=== PATIENT | male | born 1995 | race Caucasian/White ===

== ENCOUNTER 2021-01-25 13:46 | Outpatient (REF) | payer OTHER, SELFPAY ==
--- NOTE | 2021-01-25 15:43 | MHC.AU.HFU ---
Hearing Instrument Follow-Up- Binaural Date of Visit: 01/25/21 Right Ear: Case Manager: Phonak Model: Overtoneeo V90-13 Serial Number: [id number] Battery Size: 13 Expeditionary Fighting Vehicle Crewman: Size 2 SP Type of Mold: CShell Type of Wax Guard: Cerustop Dispensed By: [employer] [place], [place] Date of Fitting: ~2013 Left Ear: Case Manager: Phonak Model: Audeo V90-13 Serial Number: [id number] Battery Size: 13 Expeditionary Fighting Vehicle Crewman: Size 2 SP Type of Mold: CShell Type of Wax Guard: Cerustop Dispensed By: [employer] [place] Date of Fitting: ~2013 Follow-Up Summary: Patient seen to transfer his care to us. 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 He uses hearing aids binaurally. The cShell medical affairs specialist wire broke on his right aid and there is a hole in the left cShell. Removed a small amount of cerumen from the left ear with EarWax MD and a lighted curette. Took earmold impressions without incident. Ordering new cShells for both aids and will bill to insurance. Put a size 3xS right medical affairs specialist and large power dome on the right aid for him to use for now. Performed maintenance on both aids. Also advised patient that he is due for new hearing aids and if he wants to pursue new aids he can return for an audio and HAE. Saved hearing aid programming in [facility] today. Recommendations: Recommendations: Patient will be contacted when materials have arrived. Signature: Provider: Radha Hernandez, [facility]
== END 2021-01-25 13:47 | disposition home or self-care (01) ==
LOC: HO.HAP 13:46
PROVIDERS: Visit Provider Nurse Practitioner Family
DX: Z46.1 Encounter for fitting and adjustment of hearing aid (principal); H90.3 Sensorineural hearing loss, bilateral
CPT/HCPCS: V5011; V5275

== ENCOUNTER 2021-02-16 12:22 | Outpatient (REF) | payer OTHER, SELFPAY | END 2021-02-16 12:23 | disposition home or self-care (01) | LOC: HO.HAP 12:22 | PROVIDERS: Visit Provider Family Medicine | DX: Z46.1 Encounter for fitting and adjustment of hearing aid (principal); H90.3 Sensorineural hearing loss, bilateral | CPT/HCPCS: V5264; V5299 ==

== ENCOUNTER 2022-06-28 08:01 | Outpatient (REF) | payer OTHER, SELFPAY ==
--- NOTE | 2022-06-28 16:44 | MHC.AU.MED ---
Medical Clearance for Hearing Instrumentation Date: 06/28/22 Patient Name: Juancarlos Alarcon Date of : 1995 Primary Care Provider: Referring Provider: Zelalem Michael MD We have seen your patient on 06/28/22 and have determined that they are a candidate for amplification (See accompanying report). Specifically, they would benefit from: Hearing aid use in both ears There is a statute that addresses Medical Evaluation Requirements prior to fitting a patient with a hearing aid. According to [place] statute 265 CMR:6.03(1), (a) General. Except as provided in 265 CMR 6.03(1)(b), a workers' compensation hearings officer shall not sell a hearing aid unless the prospective user has presented to the workers' compensation hearings officer a written statement signed by a licensed physician that states that the patient's hearing loss has been medically evaluated and the patient may be considered a candidate for a hearing aid. The medical evaluation must have taken place within the preceding six months. Please note: Due to the [place] Statute referenced above, we cannot accept a signature other than that of a licensed physician. POWERHOUSE TENDER and PA signatures cannot be accepted. I am in agreement with the above recommendation. There is no medical contraindication for hearing instrumentation. Physician Signature Date Physician Name (Printed)
--- NOTE | 2022-07-01 07:23 | MHC.AU.HA1 ---
Hearing Aid Evaluation Date of Visit: 06/28/22 Historical Information: Description of Hearing: Asymmetric moderate to profound mixed hearing loss with the left ear being poorer than the right with good speech discrimination ability bilaterally related to history of cholesteotomas. Current personal amplification information, if applicable: Phonak Audeo V 90-13 binaural aids with SP receivers Summary: Juancarlos's current hearing aids have a significant amount of corrosion and debris related to his work environment and daily activities which have caused the right aid to stop working and cannot be repaired. Rechargeable hearing aids are necessary to reduce the amount of moisture accumulating in the hearing aid electronics. A Charge and Care Shoe Shiner and moisture protection such as Ear Gear are necessary to help maintain the function of the hearing aids. Will be using scans on file for the c-shells obtained last year with the addition of canal locks as they fit well and patient's history of ear surgery and large ear canals/marin has made taking good impressions difficult. Hearing Aid Prescription: Based on the individual?s shared listening needs, communication environments, dexterity, desire for connectivity, and personal preferences, the following prescription for amplification has been made: Right ear: Make, Model, Color: Phonak Audeo P 70-R Sand Beige Battery Size: Rechargeable Field Specialist/Slim Tube: Size 2 UP Type of Earmold/Dome/CShell/SlimTip: Canal Lock C Shell - Left ear:Left ear prescription to be same as Right Hearing Aid above: Make, Model, Color: Phonak Audeo P 70-R Sand Beige Battery Size: Rechargeable Field Specialist/Slim Tube: Size 2 UP Type of Earmold/Dome/CShell/SlimTip: Canal Lock C Shell Accessories/Assistive Technology Recommended: Charge and Care Shoe Shiner and Ear Gear Plan of Care: Patient wishes to purchase hearing aids as prescribed Action Taken/Action Needed: Medical Clearance to be requested from PCP/ENT Hearing Instrument Fitting to be scheduled when materials arrive Primary Diagnosis: H90.6 Mixed Hearing Loss, Bilateral Secondary Diagnosis: H69.93 Unspecified Eustachian Tube Dysfunction, Bilateral Signature:Provider: Giorgi Seals, [facility]
== END 2022-06-28 08:02 | disposition home or self-care (01) ==
LOC: HO.SH 08:01
PROVIDERS: Visit Provider Family Medicine
DX: Z01.118 Encounter for examination of ears and hearing with other abnormal findings (principal); Z46.1 Encounter for fitting and adjustment of hearing aid; H90.6 Mixed conductive and sensorineural hearing loss, bilateral; H69.93 Unspecified Eustachian tube disorder, bilateral
CPT/HCPCS: 92557; 92567; 92591; 92593

== ENCOUNTER 2022-07-25 10:26 | Outpatient (REF) | payer OTHER, SELFPAY | END 2022-07-25 10:27 | disposition home or self-care (01) | LOC: HO.HAP 10:26 | PROVIDERS: Visit Provider Family Medicine | DX: Z46.1 Encounter for fitting and adjustment of hearing aid (principal); H90.6 Mixed conductive and sensorineural hearing loss, bilateral; H69.93 Unspecified Eustachian tube disorder, bilateral | CPT/HCPCS: V5264; V5275 ==

== ENCOUNTER 2022-08-16 08:54 | Outpatient (REF) | payer OTHER, SELFPAY | END 2022-08-16 08:55 | disposition home or self-care (01) | LOC: HO.HAP 08:54 | PROVIDERS: Visit Provider Family Medicine | DX: Z46.1 Encounter for fitting and adjustment of hearing aid (principal); H90.6 Mixed conductive and sensorineural hearing loss, bilateral | CPT/HCPCS: V5011; V5020; V5160; V5261; V5264; V5267 ==

== ENCOUNTER 2022-08-16 10:16 | Outpatient (REF) | payer SELFPAY | END 2022-08-16 10:17 | disposition home or self-care (01) | LOC: HO.HAP 10:16 | PROVIDERS: Visit Provider Family Medicine | DX: Z46.1 Encounter for fitting and adjustment of hearing aid (principal); H90.6 Mixed conductive and sensorineural hearing loss, bilateral | CPT/HCPCS: V5267 ==

== ENCOUNTER 2022-08-30 09:35 | Outpatient (REF) | payer SELFPAY ==
--- NOTE | 2022-09-01 07:59 | MHC.AU.HFU ---
Hearing Instrument Follow-Up- Binaural Date of Visit: 08/30/22 Right Ear: [employer] Driver: Phonak Audeo P 70-R Sand Beige SN [id number] Repair Warranty: 11/05/2027 Loss and Damage Warranty: 11/05/2027 Service Plan: 08/16/2023 Battery Size: Rechargeable Escapement Maker: Size 2 UP Type of Mold: Canal C Shell SN [id number] warranty 11/05/2022 Type of Wax Guard: Cerustop Dispensed By: [facility] Date of Fittin08/16/2022 Left Ear: [employer]illar Driver: Phonak Audeo P 70-R Sand Beige SN [id number] Repair Warranty: 11/05/2027 Loss and Damage Warranty: 11/05/2027 Service Plan: 08/16/2023 Battery Size: Rechargeable Escapement Maker: Size 2 UP Type of Mold: Canal C Shell SN [id number] adri 11/05/22 Type of Wax Guard: Cerustop Dispensed By: [facility] Date of Fittin08/16/2022 Follow-Up Summary: Patient overall reports the hearing aids sound good and likes the bluetooth. However, the earmolds move out of the ears when chewing and sometimes when talking. When he pushes them in the ears to be more secure and he is listening to his music via bluetooth, the music shuts off. Amelia will also randomly talk 5-6 times a day. When weight lifting, which is a daily activity, and he places the weight on the stand behind his head which also causes vibration, the aids will shut down for a moment. Contacted [facility] who advised shutting off Tap Control Enabled and Voise Tape Control Skin Or Spar Mill Operator. Took open mouth impressions of both ears without complication for remake. WILL NEED TO SEND ORIGINAL C-SHELLS BACK WHEN REMAKES FIT. Recommendations:Recommendations: Patient will be contacted when materials have arrived. Diagnosis Code(s):Primary Diagnosis: H90.6 Mixed Hearing Loss, BilateralSecondary Diagnosis: H69.93 Unspecified Eustachian Tube Dysfunction, Bilateral Signature:Provider: Giorgi Seals, [facility]
== END 2022-08-30 09:36 | disposition home or self-care (01) ==
LOC: HO.HAP 09:35
DX: Z13.89 Encounter for screening for other disorder (principal)

== ENCOUNTER 2022-09-20 09:12 | Outpatient (REF) | payer OTHER, SELFPAY ==
--- NOTE | 2022-09-20 09:49 | MHC.AU.HFU ---
Hearing Instrument Follow-Up- Binaural Date of Visit: 09/20/22 Right Ear: Report Manager: Phonak Audeo P 70-R Sand Beige SN [id number] Repair Warranty: 11/05/2027 Loss and Damage Warranty: 11/05/2027 Service Plan: 08/16/2023 Battery Size: Rechargeable Nursing Service Administrator: Size 2 UP 4.0 Type of Mold: Canal C [place] SN [id number] warranty 11/05/2022 Type of Wax Guard: Cerustop Dispensed By: [facility] Date of Fittin08/16/2022 Left Ear: Report Manager: Phonak Audeo P 70-R Sand Beige SN [id number] Repair Warranty: 11/05/2027 Loss and Damage Warranty: 11/05/2027 Service Plan: 08/16/2023 Battery Size: Rechargeable Nursing Service Administrator: Size 2 UP 4.0 Type of Mold: Canal C Shell SN [id number] adri 11/05/22 Type of Wax Guard: Cerustop Dispensed By: [facility] Date of Fittin08/16/2022 Follow-Up Summary: Fit the binaural c-shell remakes with patient reporting improved fit while in office. Patient reported he continues to have bluetooth disconnect when he or glasses touch the aids as well as when weight lifting. Went to Device Options, then Manual Controls and unchecked all the tap control options. Patient has been answering call by swiping the phone. Patient will schedule appointment before 11/05/22 if any trouble with the c-shells. Diagnosis Code(s):Primary Diagnosis: H90.6 Mixed Hearing Loss, Bilateral Signature:Provider: Giorgi Seals, [facility]
== END 2022-09-20 09:13 | disposition home or self-care (01) ==
LOC: HO.HAP 09:12
PROVIDERS: Visit Provider Family Medicine
DX: Z13.89 Encounter for screening for other disorder (principal)

== ENCOUNTER 2023-05-19 11:01 | Outpatient (REF) | payer OTHER, SELFPAY ==
--- NOTE | 2023-05-19 13:01 | MHC.AU.HA3 ---
Hearing Instrument Follow-Up- Binaural Date of Visit: 05/19/23 Right Ear: Make, Model, Color, Serial Number: Phonak Beatrizeo P 70-R SN: [id number] Color: Sand Beige Drug Abuse Program Coordinator Repair Warranty: 11/05/2027 Drug Abuse Program Coordinator Loss and Damage Warranty: 11/05/2027 [facility] Service Plan: 08/16/2023 Battery Size: Rechargeable Fagot Heater Helper/Slim Tube: Size 2 UP 4.0 Earmold/Dome/CShell/SlimTip:Canal C Shell SN: [id number] warranty 11/05/2022 Type of Wax Guard: Cerustop Dispensed By: [facility] Date of Fittin08/16/2022 Left Ear: Make, Model, Color, Serial Number: Phonak Beatrizeo P 70-R SN: [id number] Color: Sand Beige Drug Abuse Program Coordinator Repair Warranty: 11/05/2027 Drug Abuse Program Coordinator Loss and Damage Warranty: 11/05/2027 [facility] Service Plan: 08/16/2023 Battery Size: Rechargeable Fagot Heater Helper/Slim Tube: Size 2 UP 4.0 Earmold/Dome/CShell/SlimTip: Canal C Shell SN: [id number] adri 11/05/22 Type of Wax Guard: Cerustop Dispensed By: [facility] Date of Fittin08/16/2022 Follow-Up Summary: Juancarlos reported his left hearing aid is not working. Cleaned both hearing aids and c-shells. Left hearing aid is weak, robotic, and static-y. Placed a new secondary art teacher on the hearing aid with significant improvement in sound quality. Left secondary art teacher wire needs to be replaced. Right hearing aid working well. Juancarlos reported it may be related to moisture as he often sweats while working out with his hearing aids. Decided to send both the left hearing aid and c-shell to [facility] for in-warranty repair to replace the secondary art teacher wire and also assess electronics of hearing aid for moisture. Juancarlos has his right hearing aid/c-shell. Programmed left loaner at Juancarlos's request - Phonak Audeo P70-R with 2P secondary art teacher and large power dome. Recommendations: Patient will be contacted when materials have arrived. Diagnosis Code(s): Primary Diagnosis: H90.6 Mixed Hearing Loss, Bilateral Signature: Provider: Giorgi Ortiz, [facility]
== END 2023-05-19 11:02 | disposition home or self-care (01) ==
LOC: HO.HAP 11:01
DX: Z13.89 Encounter for screening for other disorder (principal)

== ENCOUNTER 2023-05-30 14:02 | Outpatient (REF) | payer OTHER, SELFPAY | END 2023-05-30 14:03 | disposition home or self-care (01) | LOC: HO.HAP 14:02 | PROVIDERS: Visit Provider Internal Medicine | DX: Z13.89 Encounter for screening for other disorder (principal) ==

== ENCOUNTER 2024-08-04 20:02 | Emergency (ER) | payer OTHER, SELFPAY ==
[2024-08-04 20:21] VITALS: BP 165/88; PULSE 59; RESP 18; TEMP 36.8; O2SAT 98; BMI 29.0
--- NOTE | 2024-08-04 20:21 | ED.GENADULT ---
HPI - General Adult General Chief complaint: Skin/Abscess/Foreign Body Stated complaint: STI check Time Seen by Provider: 08/05/24 00:02 Source: patient, RN notes reviewed and old records reviewed Mode of arrival: ambulatory Limitations: no limitations History of Present Illness ED Provider: Capo FLORES narrative: 29-year-old male presents for evaluation of bumps so he noticed in his groin. He recently shaved his pubic region. He states that he noticed bumps today. They are slightly itchy pain He has not noticed any drainage from the area. No ulcerations. He does not have any discharge from the penis pain No testicular pain or swelling. He has not had any sexual encounter for the last 4 months Related Data Allergies Allergy/AdvReac Type Severity Reaction Status Date / Time sulfamethoxazole Allergy Unknown Verified 08/04/24 20:22 [From Bactrim] trimethoprim [From Bactrim] Allergy Unknown Verified 08/04/24 20:22 Review of Systems Constitutional: Constitutional: Denies body ache(s), Denies chills and Denies fever(s) Gastrointestinal: Gastrointestinal: Denies abdominal pain Genitourinary: Genitourinary: Denies penile discharge, Denies scrotal swelling, Denies testicular mass and Denies urinary hesitancy Musculoskeletal: Musculoskeletal: Denies back pain PMFSH Social History Social History Alcohol intake: never Physical Exam ED Vital Signs: Vital Signs - 24 hr 08/04/24 20:21 Temperature 98.3 F Pulse Rate 59 Respiratory Rate 18 Blood Pressure 165/88 H Pulse Oximetry 98 Oxygen Delivery Method Room Air BMI result Body Mass Index 29.0 Const General: healthy appearing, comfortable, no acute distress, alert and awake Nutritional Appearance: well nourished Orientation/consciousness: patient oriented x3 HENMT Head: Yes normocephalic and Yes atraumatic Eyes Eyelids: Yes eyelids normal Conjunctivae: conjunctivae normal Sclerae: sclerae normal Corneas: corneas normal Pupils: Equal, round and reactive pupils present EOM: EOMs intact bilaterally Neck Neck: Yes full ROM Resp Effort & Inspection: normal respiratory effort, able to speak in complete sentences and not labored GI Inspection: No distended Palpation (GI): Soft to palpation, not firm, nontender, no guarding and not rigid Other: Unremarkable circumcised male phallus. There was no testicular swelling. The patient has several scattered papules in the pelvic region 1 2 the base of the penis. No surrounding erythema, no vesicles no drainage from either area Skin General skin exam: elasticity normal Neuro General: patient oriented x3 Cranial nerves: Yes Equal, round and reactive pupils present and Yes Bilaterally intact EOM present Cognition (Neuro): normal cognition Extrem Other: Moving all extremities well without any obvious deformities Course Course Course Narrative: RME performed by Haily Jacinto PA-C. Patient is a 29 year old assigned male at presenting to the emergency department with a possible STI. Patient states that he shaves his pubic area and has noticed some red bumps. Patient states that he has not had sex since March of 2024 but he is concerned it is an STI. Patient denies any recent swimming pool or hot tub exposure. Patient states that he does not change his razor head before every shave use. Detailed physical exam and review of systems are deferred to the store gift wrap associate. Patient placed back in the waiting room pending room availability. Medical Decision Making Medical Decision Making MDM Narrative: 29-year-old male presents for evaluation of bumps in his groin. There are no vesicles to suggest herpes. The patient has not had any recent sexual encounters. This does not appear consistent with any sexually transmitted infection. We will send off a dirty urine for gonorrhea and chlamydia testing as the patient is concerned. His symptoms are most likely related to pseudofolliculitis Differential Diagnosis Differential Diagnoses: The differential diagnosis associated with the presentation includes Pseudo folliculitis Folliculitis Herpes Genital warts Discharge Plan Discharge Clinical Impression: Pseudofolliculitis Patient Disposition: Home, Self-Care Instructions: Folliculitis (ED) Additional Instructions: We will call you if your urine results positive for any sexually transmitted infections. Your symptoms are not consistent with any common sexually transmitted infections. You may use warm compresses to help with your symptoms. Follow-up with your primary doctor, return for new or worsening symptoms Print Language: Guyanese
--- OUTSIDE RECORDS SUMMARY | 2024-08-05 00:07 | XMS_ITS | Data Portability ---
Author Organization [place] [facility], Allergy Address [address] [place] [address] Care Team Providers Care Airline Customer Service Agent Name Role Phone MILKA JACKSON Primary Care Provider Assessment No assessment recorded. Plan of Treatment Reminders Order Date Submit Date Provider Last Modified By Organization Details Last Modified Time Details Appointments FOLLOW UP 30 2024 08:00A M HECTOR Hernandez MD Not available Not available Not available Lab None recorded . Referral None recorded . Procedures None recorded . Surgeries None recorded . Imaging None recorded . Medication Orders None recorded . Patient TargetsNo targets recorded. Patient InstructionsNo instructions recorded. Reason for Referral None Reported. Results Created Date Observation Date Name Description Value Unit Range Abnormal Flag Note LastModifiedBy Organization Detail LastModifiedTime 02/28/20 24 09/09/2020 imagi ng/angie henderson tic resul t No observ ation record ed. [email or web address] Not Available 23:38:13 Result Notes None recorded. 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 following mastoidec reynaldo, bilateral ears; Note: Date Diagnosed : 03/16/2021 3:23 PM (H95.193) Not Available [facility] 4 02:26:56 Impacted cerumen of bilateral ears 97082188031 30606 Active 2020 Impacted cerumen, bilateral ; Note: Date Diagnosed : 09/09/2020 9:20 AM (H61.23) Not Available [facility] 4 02:27:13 Chronic nonsuppur ative otitis media of bilateral ears 88071318409 08969 Active 2020 Other chronic nonsuppur ative otitis media, bilateral ; Note: Date Diagnosed : 09/09/2020 9:19 AM (H65.493) Not Available [facility] 4 02:27:05 Conductiv e hearing loss, bilateral 231117304 Active 2020 Conductiv e hearing loss, bilateral ; Note: Date Diagnosed : 09/09/2020 9:47 AM (H90.0) Not Available [facility] 4 02:27:01 Chronic otitis media of bilateral ears 31294741938 01196 Active 2023 HECTOR CAMPOVERDE MD [address] [facility],[place] [address], [place], [address] , [place] - [facility] 4 09:02:34 Bilateral disorder of Eustachia n tubes 88968974252 25394 Active 2023 HECTOR CAMPOVERDE MD [address] [place] [address],[place] [address], [place], [address] , [place] - [facility] [place] 4 09:03:03 Problem Notes None recorded. Procedures Surgical History Date Name Laterality Status Provider Name and Address Organization Details Recorded Time 4 Debridement of Mastoid Cavity bilat completed HECTOR CAMPOVERDE MD [address] [place], [place] [address]on [place],[address], [address], [place] - [facility] 06/14/2024 08:10:12 4 Debridement of Mastoid Cavity bilat completed HECTOR CAMPOVERDE MD [address] [place] [address],[address], [address], [place] - [facility] 03/15/2024 09:09:46 4 Debridement of Mastoid Cavity bilat completed HECTOR CAMPOVERDE MD [address] [place], [place] [address]on [place],[address], [address], [place] - [facility] 12/11/2023 09:02:07 Imaging Results Imaging Date Name Status LastModified by Organ [facility] Details LastModified Time 09/09/2020 imaging/diag nostic result completed [email or web address] Information not available 02/28/2024 23:38:13 Procedure Notes None recorded. Medical Equipment None Reported. Allergies Allergen ID Allergen Name Allergen Category Reaction Reaction Severity Criticality Documentation Date Start Date Code Code System Note Provider Name and Address Organization Details Recorded Time 40026 Bactrim medicatio n other Not available Not available 11/21/2023 14503 9 RxNorm React ion: Unkno wn; Not Available [facility] 00:57:01 56848 Substance with sulfonami de structure and antibacte rial mechanism of action (substanc e) medicatio n other Not available Not available 11/21/2023 71804 8003 SNOMED React ion: Unkno wn; Not Available [facility] 00:57:02 Medications Not known to be on any medication Vitals Date Recorded Body height Body mass index (BMI) Body weight Provider Name and Address Organization Details Last Updated DateTime 03/15/2024 185.42 cm 29.7 kg/m2 677962.28 g Barby Hewitt [place] [facility] 03/15/2024 08:59:34 Date Recorded Body height Body mass index (BMI) Body weight Provider Name and Address Organization Details Last Updated DateTime 12/11/2023 185.42 cm 29.7 kg/m2 875453.28 g Barby Hewitt [place] [facility] 12/11/2023 08:42:00 Date Recorded Body height Body mass index (BMI) Body weight Provider Name and Address Organization Details Last Updated DateTime 06/14/2024 185.42 cm 29.7 kg/m2 254657.28 g Barby Hewitt [place] [facility] 06/14/2024 07:59:08 Social History None recorded. Functional Status None recorded. Mental Status None recorded. Family History Nothing Reported. Medical History No medical history recorded. Past Encounters Encounter ID Performer Location Encounter Start Date Encounter Closed Date Diagnosis/Indication Diagnosis SNOMED-CT Code Diagnosis ICD10 Code Diagnosis Note [id number] HECTOR CAMPOVERDE MD [facility] [address] [place] [address] 12/11/2023 08:33:59 12/11/2023 16:23:24 Chronic otitis media of bilateral ears 8092300269 051874 H66.93 No sign of residual cholesteat cathie. Both ears debrided of squamous debris. Repeat in 3 months. Bilateral disorder of Eustachian tubes 8185647206 396568 H69.93 Recommend observatio n [id number] HECTOR CAMPOVERDE MD [facility] on [address] [place] [address] 03/15/2024 08:43:20 03/15/2024 09:19:21 Chronic otitis media of bilateral ears 8958933979 274413 H66.93 No sign of residual cholesteat cathie. Both ears debrided of squamous debris. Repeat in 3 months. Impacted c erumen of bilateral ears 9398198481 621219 H61.23 [place] [id number] HCETOR CAMPOVERDE MD [facility] on [address] [place] [address] 06/14/2024 07:56:17 06/14/2024 08:12:52 Chronic otitis media of bilateral ears 7732837847 516824 H66.93 No sign of residual cholesteat cathie. Both ears debrided of squamous debris. Repeat in 3 months. Bilateral disorder of Eustachian tubes 8722776039 623461 H69.93 Recommend observatio n Health Concerns Section Related Observation LastModified by Organization Detai ls LastModified Time None Recorded Concern Status LastModified by Organization Details LastModified Time None Recorded Advance Directives Directive None Recorded Payers Encounter Date Sequence Insurance Name Policy Number Policy Regalado Covered Member ID Regalado Member ID Guarantor Name 12/11/2023 1 [facility]MEDICAID HMO) [id number] Juancarlos Alarcon [id number] Juancarlos Alarcon 03/15/2024 1 [facility]ICAID H[facility]) [id number] Juancarlos Alarcon [id number] Juancarlos Alarcon 06/14/2024 1 [facility] HEALTH NET PLAN (MEDICAID HMO) [id number] Juancarlos Alarcon [id number] Juancarlos Alarcon Notes Date Note Type Note Provider Name and Address Organization Details Recorded Time 12/11/2023 text/html Hx of CWD mastoidectomy AU. Presents for routine debridement. No issues. HECTOR CAMPOVERDE MD [address] [facility],[address], [address], [place] - [facility] 12/11/2023 09:04:10 03/15/2024 text/html Presents for debridement. Hx of mastoidectomy AU. HECTOR CAMPOVERDE MD [address] [facility],[address], [address], [place] - [facility] 03/15/2024 09:10:47 06/14/2024 text/html Hx of CWD mastoidectomy AU. Presents for routine debridement. No issues. HECTOR CAMPOVERDE MD [address] [facility],[place] [address], [place], [address], [place] [facility] 06/14/2024 08:10:56
[2024-08-05 00:18] VITALS: BP 138/82; PULSE 65; RESP 16; TEMP 36.8; O2SAT 99
[2024-08-05 00:19] VITALS: BP 138/82; PULSE 65; RESP 16; TEMP 36.8; O2SAT 99
[2024-08-05 02:54] LABS: CT PCR NOT DETECTED (Not Detect.); NG PCR NOT DETECTED (Not Detect.)
== END 2024-08-05 00:19 | disposition home or self-care (01) ==
PROVIDERS: Physician Assistant Medical; Emergency Provider Emergency Medicine Emergency Medical Services; PCP Internal Medicine
DX: L73.1 Pseudofolliculitis barbae (principal); R10.2 Pelvic and perineal pain
CPT/HCPCS: 87491; 87591; 99283; 99284

== ENCOUNTER 2025-05-16 09:59 | Outpatient (AMB) | payer OTHER, SELFPAY ==
--- NOTE | 2025-05-16 10:09 | A.OFFPC_ITS ---
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 Transferring care from [facility] care ([facility]). Medical records have been requested and have not received. Downstream Biomanufacturing Technician Required: No Manager Technology: Not Required per policy Accompanied by: Self / Same As Patient Allergies sulfamethoxazole (From Bactrim) Allergy (Verified 05/16/25 10:11) Unknown trimethoprim (From Bactrim) Allergy (Verified 05/16/25 10:11) Unknown Medication List - Last Reconciled 05/16/25 by Tobin Le MD No Known Home Meds Tobacco use date assessed: 05/16/25 Dental Screening Dental Screen Date: 05/16/25 Did you have a dental visit in the last 12 months?: Yes Did you have a dental problem in the last 6 months where you did not have access to dental care?: No Was dental information given to patient?: Patient has dentist HPI HPI Comments History of Present Illness Details The patient is a 29-year-old male with PMH poison SOUTH allergy presenting to establish care. He is here for a general check-up and to address concerns about excessive burping. His dentist suggested the frequent burping might be causing tooth erosion, though the patient reports no symptoms of acid reflux, such as a burning sensation, metalic taste in the mouth, cough or pain. The patient's past medical history is significant for hearing loss since age [age], requiring hearing aids. He has undergone 13 cholesteatoma removal surgeries. His most recent hearing test indicated profound loss in the left ear and severe loss in the right ear, but his condition is manageable with his devices. He denies a history of high blood pressure or high cholesterol. The patient reports a high-protein diet, which includes consuming 10 eggs for breakfast, and notes increased flatulence. He puts milk in his oatmeal but has not used protein shakes in a while. He denies any bloating, constipation, or diarrhea. His maternal grandfather had colon cancer, diagnosed at age 71 or 72. The patient denies any use of tobacco, alcohol, or illicit drugs. [facility] Medical History (Updated 05/16/25 @ 11:22 by Tobin Le MD) History of cholesteatoma History of urethral stricture Surgical History (Updated 05/16/25 @ 10:25 by KHURRAM Arellano) History of surgery Social History (Updated 05/16/25 @ 10:10 by KHURRAM Arellano) Housing: Apartment Alcohol intake: never Patient Tobacco Use Status: Never used Tobacco e-Cigarette/Vaping Use: Never Used Second Hand Smoke Exposure: No service: No Current occupational status: employed Current occupation: [employer] Cognitive needs: No Hearing needs: Yes (Hearing aide) Vision needs: Yes (Contacts) Questionnaire PHQ-9 Over the last 2 weeks, how often have you been bothered by any of the following problems? 1. Little interest or pleasure in doing things: not at all 2. Feeling down, depressed, or hopeless: not at all 3. Trouble falling or staying asleep, or sleeping too much: not at all 4. Feeling tired or having little energy: not at all 5. Poor appetite or overeating: not at all 6. Feeling bad about yourself - or that you are a failure or have let yourself or your family down: not at all 7. Trouble concentrating on things, such as reading the newspaper or watching television: not at all 8. Moving or speaking so slowly that other people could have noticed. Or the opposite - being so fidgety or restless that you have been moving around a lot more than usual: not at all 9. Thoughts that you would be better off or of hurting yourself in some way: not at all Total score: 0 Depression Screening Interpretation: Negative Depression Screening Done: Yes Source: Developed by Drs. Qasim Medrano, Rosa Mcclain, Robert Tadeo and colleagues, with an educational jean-pierre from [employer]. Thrive Questionnaire Date Thrive assessed: 05/16/25 I am a: Patient What is your living situation today?: I have a steady place to live Within the past 12 months, did the food you bought not last and you didn't have the money to get more?: Never true Within the past 12 months, did you worry whether your food would run out before you got money to buy more?: Never true Do you have trouble paying for medicines?: No Do you have trouble getting transportation to medical appointments?: No Do you have trouble paying your heating and electricity bill?: No Do you have trouble taking care of your child, family member or friend?: No Do you have trouble with day-to-day activities such as bathing, preparing meals, shopping, managing finances, etc.?: No Are you currently unemployed and looking for a job?: No Are you interested in more education?: Yes Please select the resources that you would like help with: None Currently or been in a relationship where the following occur: No concerns reported THRIVE Score: 0 AUDIT C Alcohol Use Questionnaire (AUDIT-C) 1. How often do you have a drink containing alcohol?: Never Total Score: 0 DEDE-7 AMB Questionnaire DEDE-7 Date DEDE - 7 assessed: 05/16/25 Feeling nervous, anxious, or on edge: 0 = Not at all Not being able to stop or control worryin = Not at all Worrying too much about different things: 0 = Not at all Trouble relaxin = Not at all Being so restless that it is hard to sit still: 0 = Not at all Becoming easily annoyed or irritable: 0 = Not at all Feeling afraid as if something awful might happen: 0 = Not at all Total DEDE-7 score (0-4 normal; 5-9 mild; 10-14 moderate; 15-21 severe): 0 Source: Developed by Drs. Qasim Medrano, Rosa Mcclain, Robert Tadeo and colleagues, with an educational jean-pierre from [employer]. Review of Systems Const Details: Positives besides what was mentioned in HPI are in BOLD Constitutional: No Weight Change, No Fever, No Chills, No Night Sweats, No Fatigue, No Malaise ENT/Mouth: No Hearing Changes, No Ear Pain, No Nasal Congestion, No Sinus Pain, No Hoarseness, No sore throat, No Rhinorrhea, No Swallowing Difficulty Eyes: No Eye Pain, No Swelling, No Redness, No Foreign Body, No Discharge, No Vision Changes Cardiovascular: No Chest Pain, No SOB, No PND, No Dyspnea on Exertion, No Orthopnea, No Claudication, No Edema, No Palpitations Respiratory: No Cough, No Sputum, No Wheezing, No Smoke Exposure, No Dyspnea Gastrointestinal: No Nausea, No Vomiting, No Diarrhea, No Constipation, No Pain, No Heartburn, No Anorexia, No Dysphagia, No Hematochezia, No Melena, No Flatulence, No Jaundice Genitourinary: No Dysmenorrhea, No DUB, No Dyspareunia, No Dysuria, No Urinary Frequency, No Hematuria, No Urinary Incontinence, No Urgency, No Flank Pain, No Urinary Flow Changes, No Hesitancy Musculoskeletal: No Arthralgias, No Myalgias, No Joint Swelling, No Joint Stiffness, No Back Pain, No Neck Pain, No Injury History Skin: No Skin Lesions, No Pruritis, No Hair Changes, No Breast/Skin Changes, No Nipple Discharge Neuro: No Weakness, No Numbness, No Paresthesias, No Loss of Consciousness, No Syncope, No Dizziness, No Headache, No Coordination Changes, No Recent Falls Psych: No Anxiety/Panic, No Depression, No Insomnia, No Personality Changes, No Delusions, No Rumination, No SI/HI/AH/VH, No Social Issues, No Memory Ch anges, No Violence/Abuse Hx., No Eating Concerns Heme/Lymph: No Bruising, No Bleeding, No Transfusions History, No Lymphadenopathy Endocrine: No Polyuria, No Polydipsia, No Temperature Intolerance Physical exam (Primary Care) Vital Signs: Last Vital Signs Temp 97.3 F 05/16/25 10:12 Pulse 58 05/16/25 10:12 BP 130/62 05/16/25 10:12 Pulse Ox 97 05/16/25 10:12 Oxygen Delivery Method Room Air 05/16/25 10:12 BMI result Body Mass Index 31.0 Tobacco/Smoking Status: Tobacco use Status Tobacco use date assessed 05/16/25 05/16/25 10:27 Patient Tobacco Use Status Never used Tobacco 05/16/25 10:27 e-Cigarette/Vaping Use Never Used 05/16/25 10:27 PHQ-9: PHQ-9 Score PHQ-9: Total score 0 05/16/25 10:36 Depression Screening Interpretation: Negative Thrive Assessment: Date of Thrive Assessment Date Thrive assessed 05/16/25 05/16/25 10:27 Currently or been in a relationship where the following occur: No concerns reported Const Other: Pertinent findings are in BOLD GENERAL APPEARANCE NAD, activity normal for age, well developed/ well nourished, no cyanosis, pallor, or diaphoresis. EYES lids/conjunctiva normal. EARS/NOSE/THROAT Mucous membranes moist, nares normal, lips/teeth normal uvula midline without oral pharyngeal erythema, exudate or swelling TMs normal bilaterally. No lymphangitis/lymphedema. HEAD/NECK normocephalic atraumatic, no facial trauma, neck is supple. RESPIRATORY respiratory effort normal, speaks in full sentences, no tripod position, no accessory muscle use. Lungs clear to auscultation without rhonchi, wheezes, rales CARDIAC Regular rate and rhythm, no edema. ABDOMINAL Soft, ND/NT. No evidence of fluid wave. No pulsatile masses on exam, rebound tenderness, Scott sign or pain over Mcburney's point. MUSCLES/EXTREMITIES No abnormal range of motion, no swelling. SKIN Warm, pink and dry. No rashes, dermatoses, petechiae or lesions. NEUROLOGICAL Speech is clear and appropriate. Normal level of consciousness. Gait and coordination are normal. 5/5 strength in all extremities. PSYCH Normal mood and affect. Judgement/competence is appropriate Office Procedures Flu Questionnaire Does the patient have a severe egg allergy?: No Does the patient have severe life threatening allergies?: No Does the patient have a fever or illness today?: No Has the patient ever had Guillain-Verdi Syndrome?: No Has the patient ever had any past reaction to a flu shot?: No Immunizations Fluarix [id number] (PF) 45 mcg (15 mcg x 3)/0.5 mL IM syringe Performing Provider: Tobin Le MD [facility] Administered by: Edna Dove LPN on 05/16/25 10:47 Dose Route Admin Location Dispensed Lot Number Expiration Date [facility] Wet Pour Mixer 0.5 mL IM Left Deltoid 0.5 mL [id number] 01/06/26 [id number] [employer] VIS Given Date VIS Provided VIS Publication Date 05/16/25 Single Vaccine 24 Eligibility Eligibility Date Funding Source Not [facility] Eligible 05/16/25 Private Coding Level of Care Code New Pt Level 4 (86104) New Pt Prev Care 18-39yr(50615 Diagnoses Burping R14.2 Healthcare maintenance Z00.00 Allergy to poison south Z91.09 Time Spent (min) 30 Assessment & Plan Assessment & Plan (1) Burping: Code(s): R14.2 - Eructation Category: Medical Plan: - The patient's excessive burping, which has raised concerns about dental erosion, appears to be related to his high-protein, dairy-rich diet rather than gastroesophageal reflux disease, given the absence of heartburn or other classic symptoms. - For symptomatic relief, the use of zfth-[id number] Tums is recommended as needed. - A prescription medication for acid reflux is not indicated at this time. - Advised to reduce dairy intake to see if GI symptoms improve. (2) Healthcare maintenance: Code(s): Z00.00 - Encounter for general adult medical examination without abnormal findings Category: Medical Plan: CBC, CMP, Lipid panel, A1C, TSH w T4, vit D. Ordered. Shingles 2 doses when >50 yo. At 50. COVID: two doses. Completed in the past. Pneumococcal: >50 yo. 18-49 with CKD, lung disease, weakened immune system, Heart disease, DM, cochlear implant. Not indicated. Flu vaccine: Today. Tdap: every 10 years. due at 2030. Colonoscopy: 45-75. At 45. AAA: 65 -75. Not [address]. CT lun - 80. Not indicated. PSA: 50 -70 every two years. At 50. HIV: Ordered today. HCV: Ordered today. (3) Allergy to poison south: Code(s): Z91.09 - Other allergy status, other than to drugs and biological substances Category: Medical Plan: Currently in remission and asymptomatic. We will continue to monitor the patient's symptoms. Plan I explained to the patient that his excessive burping is likely due to his high- protein and dairy-rich diet, as he does not exhibit the typical symptoms of acid reflux disease. I recommended trying [id number] Tums for symptomatic relief and suggested reducing his dairy intake. We determined that a prescription medication for acid reflux is not necessary at this point. We reviewed his family history of colon cancer and I clarified that since his grandfather's diagnosis was at an advanced age, it does not alter the standard recommendation for him to begin colonoscopy screening at age 45. I ordered routine labs and he consented to screening for hepatitis C and HIV. We also reviewed his immunizations, and he agreed to receive the flu vaccine during the visit. The nurse provided him with information on potential side effects. I advised him to follow up in one year for his next annual exam, or sooner if needed. Orders: Orders Complete Blood Count no Diff Today Z00.00 - Encounter for general adult medical examination without abnormal findings Comprehensive Met. Panel Today Z00.00 - Encounter for general adult medical examination without abnormal findings Hemoglobin A1c Today Z00.00 - Encounter for general adult medical examination without abnormal findings HIV Ab/Ag Today Z00.00 - Encounter for general adult medical examination without abnormal findings Hepatitis C Antibody Reflex Today Z00.00 - Encounter for general adult medical examination without abnormal findings Vitamin D 25-OH Total Today Z00.00 - Encounter for general adult medical examination without abnormal findings TSH reflex Free T4 Today Z00.00 - Encounter for general adult medical examination without abnormal findings UA and rflx microscopic Today Z00.00 - Encounter for general adult medical examination without abnormal findings Lipid Panel Today Z00.00 - Encounter for general adult medical examination without abnormal findings Vitamin B12 and Folate Today D64.9 - Anemia, unspecified, Z00.00 - Encounter for general adult medical examination without abnormal findings Influenza [id number] Immunization Today Z23 - Encounter for immunization
[2025-05-16 10:12] VITALS: BP 130/62; PULSE 58; TEMP 36.3; O2SAT 97; BMI 31.0
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
--- OUTSIDE RECORDS SUMMARY | 2025-05-16 11:44 | XMS_ITS | Continuity of Care Document ---
Author Organization [place] - [facility], [facility] Address [address] [place] [address] Care Team Providers Care Typesetting Machine Tender Name Role Phone MILKA JACKSON Primary Care Provider Assessment No assessment recorded. Plan of Treatment Reminders Order Date Submit Date Provider Last Modified By Organization Details Last Modified Time Details Appointments Establish ed 30 2024 09:00A Sulema Hernandez MD Not available Not available Not available Lab None recorded. Referral None recorded. Procedures None recorded. Surgeries None recorded. Imaging None recorded. Medication Orders None recorded. Patient TargetsNo targets recorded. Patient InstructionsNo instructions recorded. Reason for Referral None Reported. Problems Name Problem SNOMED Code Status Onset Date Resolution Date Notes Provider Name and Address Organization Details Recorded Time Impacted cerumen of bilateral ears 05706923796 40945 Active 2020 Impacted cerumen, bilateral ; Note: Date Diagnosed : 09/09/2020 9:20 AM (H61.23) Not Available [facility] 4 02:27:13 Chronic nonsuppur ative otitis media of bilateral ears 93165175989 07283 Active 2020 Other chronic nonsuppur ative otitis media, bilateral ; Note: Date Diagnosed : 09/09/2020 9:19 AM (H65.493) Not Available 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 Other disorders following mastoidec reynaldo, bilateral ears; Note: Date Diagnosed : 03/16/2021 3:23 PM (H95.193) Not Available [facility] 4 02:26:56 Chronic otitis media of bilateral ears 11293015066 53800 Active 2023 HECTOR CAMPOVERDE MD [address] [place] [address], [place], [address] , [place] - [facility] 4 09:02:34 Bilateral disorder of Eustachia n tubes 58211905996 Active 2023 HECTOR CAMPOVERDE MD [address] [place] [address], [facility] [place], [address] , [place] - [facility] 4 09:03:03 Problem Notes None recorded. Procedures Surgical History Date Name Laterality Status Provider Name and Address Organization Details Recorded Time 5 Debridement of Mastoid Cavity bilat completed HECTOR CAMPOVERDE MD [address] [place],[address], [address], [place] - [facility] 03/28/2025 08:33:04 5 Debridement of Mastoid Cavity bilat completed HECTOR CAMPOVERDE MD [address] [place], [place] [address]on [place],[address], [address], [place] - [facility] 12/25/2024 08:59:47 5 Debridement of Mastoid Cavity bilat completed HECTOR CAMPOVERDE MD [address] [place],[address], [address], [place] - [facility] 09/27/2024 08:16:09 4 Debridement of Mastoid Cavity bilat completed HECTOR CAMPOVERDE MD [address] [place],[address], [address], [place] - [facility] 06/14/2024 08:10:12 4 Debridement of Mastoid Cavity bilat completed HECTOR CAMPOVERDE MD [address] [place],[address], [address], [facility] - [facility] 03/15/2024 09:09:46 Debridement of Mastoid Cavity bilat completed HECTOR CAMPOVERDE MD [address] [facility] [address], [place], [address], [facility] - [facility] 12/11/2023 09:02:07 Imaging Results None recorded. Procedure Notes None recorded. Medical Equipment None Reported. Allergies Allergen ID Allergen Name Allergen Category Reaction Reaction Severity Criticality Documentation Date Start Date Code Code System Note Provider Name and Address Organization Details Recorded Time 22220 Bactrim medicatio n other Not available Not available 11/21/2023 49038 9 RxNorm React ion: Unkno wn; Not Available [facility] 00:57:01 37984 Substance with sulfonami de structure and antibacte rial mechanism of action (substanc e) medicatio n other Not available Not available 11/21/2023 02885 8003 SNOMED React ion: Unkno wn; Not Available [facility] 4 00:57:02 Medications Name Sig Start Date Stop Date Status Note LastModified by Organization Details LastModified Time imiquimod 5 % topical cream packet APPLY 1 PACKET TOPICALLY 3 TIMES A WEEK. WASH HANDS PRIOR TO AND FOLLOWING APPLICATIO N. active Not Available Not Available No t Available clindamycin 1 % lotion active Not Available Not Available Not Available Vitals Date Recorded Body height Body mass index (BMI) Body weight Provider Name and Address Organization Details Last Updated DateTime 03/28/2025 185.42 cm 29.7 kg/m2 925669.[address] - [facility] 03/28/2025 08:04:59 Social History None recorded. Functional Status None recorded. Mental Status None recorded. Family History Nothing Reported. Medical History No medical history recorded. Past Encounters Encounter ID Performer Location Encounter Start Date Encounter Closed Date Diagnosis/Indication Diagnosis SNOMED-CT Code Diagnosis ICD10 Code Diagnosis IMO Codes Diagnosis Note [id number] HECTOR CAMPOVERDE MD [facility] [address] [place] [address] 03/28/2025 07:54:38 03/28/2025 08:31:33 Chronic otitis media of bilateral ears 0152980023 964345 H66.93 No sign of residual cholesteat cathie. Both ears debrided of squamous debris. Repeat in 3 months. Bilateral disorder of Eustachian tubes 8450585067 804133 H69.93 Recommend observatio n Health Concerns Section Related Observation LastModified by Organization Detai ls LastModified Time None Recorded Concern Status LastModified by Organization Details LastModified Time None Recorded Payers Encounter Date Sequence Insurance Name Policy Number Policy Regalado Covered Member ID Regalado Member ID Guarantor Name 03/28/2025 1 [facility] NET PLAN (MEDICAID HMO) THERONNACO Juancarlos Alarcon [id number] [facility] Notes Date Note Type Note Provider Name and Address Organization Details Recorded Time 03/28/2025 text/html ROS as noted in the HPI Hx of CWD mastoidectomy AU. Presents for routine debridement. No issues. HECTOR CAMPOVERDE MD [address] [place] [address], [address], [facility] - [facility] 03/28/2025 08:33:32
--- OUTSIDE RECORDS SUMMARY | 2025-05-16 11:44 | XMS_ITS | Data Portability ---
Author Organization ID - [facility], Allergy Address [address] [address] Care Team Providers Care Computational Mathematician Name Role Phone MILKA JACKSON Primary Care Provider Assessment No assessment recorded. Plan of Treatment Reminders Order Date Submit Date Provider Last Modified By Organization Details Last Modified Time Details Appointments Establish ed 30 2024 09:00A M HECTOR Hernandez MD Not available Not available Not available Lab None recorded. Referral None recorded. Procedures None recorded. Surgeries None recorded. Imaging None recorded. Medication Orders None recorded. Patient TargetsNo targets recorded. Patient InstructionsNo instructions recorded. Reason for Referral None Reported. Results Created Date Observation Date Name Description Value Unit Range Abnormal Flag Note LastModifiedBy Organization Detail LastModifiedTime 02/28/20 24 09/09/2020 imagi ng/di yaelos tic resul t No observ ation record ed. [email or web address] Not Available 23:38:13 Result Notes None recorded. Problems Name Problem SNOMED Code Status Onset Date Resolution Date Notes Provider Name and Address Organization Details Recorded Time Impacted cerumen of bilateral ears 26915721449 66125 Active 2020 Impacted cerumen, bilateral ; Note: Date Diagnosed : 09/09/2020 9:20 AM (H61.23) Not Available [facility] 02:27:13 Chronic nonsuppur ative otitis media of bilateral ears 18140726468 00504 Active 2020 Other chronic nonsuppur ative otitis media, bilateral ; Note: Date Diagnosed : 09/09/2020 9:19 AM (H65.493) Not Available [facility] 4 02:27:05 Conductiv e hearing loss, bilateral 956436787 Active 2020 Conductiv e hearing loss, bilateral ; Note: Date Diagnosed : 09/09/2020 9:47 AM (H90.0) Not Available [facility] 4 02:27:01 Postmasto idectomy complicat ion 82660989 Active 2020 Other disorders following mastoidec reynaldo, bilateral ears; Note: Date Diagnosed : 03/16/2021 3:23 PM (H95.193) Not Available [facility] 4 02:26:56 Chronic otitis media of bilateral ears 46984156328 69361 Active 2023 HECTOR CAMPOVERDE MD [address] [facility],[place] [address], [facility] [place], [id number] , [place] - [facility] 4 09:02:34 Bilateral disorder of Eustachia n tubes 94878677775 Active 2023 HECTOR CAMPOVERDE MD [address] [place] [address],[place] [address], [place], [id number] , [place] - [facility] 4 09:03:03 Problem Notes None recorded. Procedures Surgical History Date Name Laterality Status Provider Name and Address Organization Details Recorded Time 5 Debridement of Mastoid Cavity bilat completed HECTOR CAMPOVERDE MD [address] [place] [address],[address], [address], [place] - [facility] 03/28/2025 08:33:04 5 Debridement of Mastoid Cavity bilat completed HECTOR CAMPOVERDE MD [address] [place] [address],[address], [address], [place] - [facility] 12/25/2024 08:59:47 5 Debridement of Mastoid Cavity bilat completed HECTOR CAMPOVERDE MD [address] [place] [address],[address], [address], [place] - [facility] 09/27/2024 08:16:09 4 Debridement of Mastoid Cavity bilat completed HECTOR CAMPOVERDE MD [address] [place] [address],[address] [place], [address], [place] - [facility] 06/14/2024 08:10:12 4 Debridement of Mastoid Cavity bilat completed HECTOR CAMPOVERDE MD [address] [facility],[address], [address], [facility] 03/15/2024 09:09:46 4 Debridement of Mastoid Cavity bilat completed HECTOR CAMPOVERDE MD [address], [address], [facility] - [facility] 12/11/2023 09:02:07 Imaging Results None recorded. Procedure Notes None recorded. Medical Equipment None Reported. Allergies Allergen ID Allergen Name Allergen Category Reaction Reaction Severity Criticality Documentation Date Start Date Code Code System Note Provider Name and Address Organization Details Recorded Time 75836 Bactrim medicatio n other Not available Not available 11/21/2023 56691 9 RxNorm React ion: Unkno wn; Not Available [facility] 4 00:57:01 45591 Substance with sulfonami de structure and antibacte rial mechanism of action (substanc e) medicatio n other Not available Not available 11/21/2023 69108 8003 SNOMED React ion: Unkno wn; Not Available [facility] 4 00:57:02 Medications Name Sig Start Date [...] and Address Organization Details Last Updated DateTime 09/27/2024 185.42 cm 29.7 kg/m2 988307.28 carlos Hewitt [facility] 09/27/2024 08:01:58 Date Recorded Body height Body mass index (BMI) Body weight Provider Name and Address Organization Details Last Updated DateTime 12/25/2024 185.42 cm 29.7 kg/m2 055775.28 g Ginnette Rancitelli [place] - [facility] 12/25/2024 08:27:10 Date Recorded Body height Body mass index (BMI) Body weight Provider Name and Address Organization Details Last Updated DateTime 03/15/2024 185.42 cm 29.7 kg/m2 882318.28 carlos Barby Hewitt [place] - [facility] 03/15/2024 08:59:34 Date Recorded Body height Body mass index (BMI) Body weight Provider Name and Address Organization Details Last Updated DateTime 03/28/2025 185.42 cm 29.7 kg/m2 994218.28 carlos Barby Hewitt [place] - [facility] 03/28/2025 08:04:59 Date Recorded Body height Body mass index (BMI) Body weight Provider Name and Address Organization Details Last Updated DateTime 06/14/2024 185.42 cm 29.7 kg/m2 599777.28 carlos Barby Hewitt [place] - [facility] 06/14/2024 07:59:08 Social History None recorded. Functional Status None recorded. Mental Status None recorded. Family History Nothing Reported. Medical History No medical history recorded. Past Encounters Encounter ID Performer Location Encounter Start Date Encounter Closed Date Diagnosis/Indication Diagnosis SNOMED-CT Code Diagnosis ICD10 Code Diagnosis IMO Codes Diagnosis Note [id number] HECTOR CAMPOVERDE MD [facility] on [address] [place] [phone] 12/11/2023 08:33:59 12/11/2023 16:23:24 Chronic otitis media of bilateral ears 1630672211 875444 H66.93 No sign of residual cholesteat cathie. Both ears debrided of squamous debris. Repeat in 3 months. Bilateral disorder of Eustachian tubes 3281918208 815425 H69.93 [place]atio n [id number] HECTOR CAMPOVERDE MD [facility] on [address] [place] [phone] 03/15/2024 08:43:20 03/15/2024 09:19:21 Chronic otitis media of bilateral ears 0007092806 223047 H66.93 No sign of residual cholesteat cathie. Both ears debrided of squamous debris. Repeat in 3 months. Impacted c erumen of bilateral ears 0186604839 427651 H61.23 [place] [id number] HECTOR CAMPOVERDE MD [facility] on [address] [place] [phone] 06/14/2024 07:56:17 06/14/2024 08:12:52 Chronic otitis media of bilateral ears 8920014831 516661 H66.93 No sign of residual cholesteat cathie. Both ears debrided of squamous debris. Repeat in 3 months. Bilateral disorder of Eustachian tubes 9082394056 805911 H69.93 Recommend observatio n [id number] HECTOR CAMPOVERDE MD [facility] on [address] [place] [phone] 09/27/2024 07:59:37 09/27/2024 08:15:40 Chronic otitis media of bilateral ears 3311844461 198487 H66.93 No sign of residual cholesteat cathie. Both ears debrided of squamous debris. Repeat in 3 months. Bilateral disorder of Eustachian tubes 5925906471 211075 H69.93 [place] observatio n [id number] HECTOR CAMPOVERDE MD [facility] on [address] [place] [phone] 12/25/2024 08:23:49 12/25/2024 08:48:07 Chronic otitis media of bilateral ears 0312669863 097092 H66.93 No sign of residual cholesteat cathie. Both ears debrided of squamous debris. Repeat in 3 months. Bilateral disorder of Eustachian tubes 1787430742 686906 H69.93 Recommend observatio n [id number] HECTOR CAMPOVERDE MD [facility] on [address] [place] [phone] 03/28/2025 07:54:38 03/28/2025 08:31:33 Chronic otitis media of bilateral ears 9544123897 462889 H66.93 No sign of residual cholesteat cathie. Both ears debrided of squamous debris. Repeat in 3 months. Bilateral disorder of Eustachian tubes 7872610384 358489 H69.93 Recommend observatio n Health Concerns Section Related Observation LastModified by Organization Detai ls LastModified Time None Recorded Concern Status LastModified by Organization Details LastModified Time None Recorded Advance Directives Directive None Recorded Payers Insurance Date Sequence Insurance Name Policy Number Policy Regalado Covered Member ID Regalado Member ID Guarantor Name 03/28/2025 1 [facility] [employer] (MEDICAID HMO) [id number] Juancarlos Alarcon [id number] Juancarlos Alarcon 03/28/2025 1 [facility] [employer] (MEDICAID HMO) [place] Juancarlos Alarcon [id number] Juancarlos Alarcon Notes Date Note Type Note Provider Name and Address Organization Details Recorded Time 03/15/2024 text/html ROS as noted in the HPI Presents for debridement. Hx of mastoidectomy AU. HECTOR CAMPOVERDE MD [address] [place] [address], [phone], [place] - [facility] 03/15/2024 09:10:47 06/14/2024 text/html ROS as noted in the HPI Hx of CWD mastoidectomy AU. Presents for routine debridement. No issues. HECTOR CAMPOVERDE MD [address] [place] [address], [address], [place] - [facility] 06/14/2024 08:10:56 09/27/2024 text/html ROS as noted in the HPI Hx of CWD mastoidectomy AU. Presents for routine debridement. No issues. HECTOR CAMPOVERDE MD [address] [place] [address], [address], [place] - [facility] 09/27/2024 08:16:52 12/25/2024 text/html ROS as noted in the HPI Hx of CWD mastoidectomy AU. Presents for routine debridement. No issues. HECTOR CAMPOVERDE MD [address] [place] [address],[address], [address], [place] - [facility] 12/25/2024 09:00:18 03/28/2025 text/html ROS as noted in the HPI Hx of CWD mastoidectomy AU. Presents for routine debridement. No issues. HECTOR CAMPOVERDE MD [address] [place] [address],[address], [address], [place] - [facility] 03/28/2025 08:33:32
== END 2025-05-16 10:50 | disposition home or self-care (01) ==
LOC: HO.HMCH 09:59
PROVIDERS: PCP Internal Medicine; Visit Provider Internal Medicine
DX: Z00.00 Encounter for general adult medical examination without abnormal findings (principal); R14.2 Eructation; Z91.09 Other allergy status, other than to drugs and biological substances; Z23 Encounter for immunization

== ENCOUNTER → 2025-05-16 09:59 | Outpatient (BNVA) | payer OTHER, SELFPAY | PROVIDERS: PCP Internal Medicine; Visit Provider Internal Medicine | DX: Z00.00 Encounter for general adult medical examination without abnormal findings (principal); R14.2 Eructation; Z91.048 Other nonmedicinal substance allergy status; Z23 Encounter for immunization | CPT/HCPCS: 90471; 90656; 99385 ==

== ENCOUNTER 2025-07-02 14:38 | Outpatient (REF) | payer OTHER, SELFPAY ==
--- OUTSIDE RECORDS SUMMARY | 2025-05-29 19:07 | XMS_ITS | Encounter Summary ---
Author Organization [facility] Address [address] [place] [address] Phone Care Team Providers Care Detective Sergeant Name Role Phone Pcp, Unknown Primary Care Provider Unavailabl e Encounter Details Date Type Department Care Team (Late st Contact Info) Description 05/29/2025 7:07 PM EST Hospital Encounter [facility] [address] [place] [address] [facility], [address] [place] [address] Social History Tobacco Use Types Packs/Day Years Used Date Smoking Tobacco: Never Passive Smoke Exposure: Never Smokeless Tobacco: Never Education Answer Date Recorded Are you interested [...] Orientation Straight 04/14/2020 2: 04 PM EDT documented as of this encounter Plan of Treatment Not on file documented as of this encounter Procedures Procedure Name Priority Date/Time Associated Diagnosis Comments XR HAND 3 OR MORE VIEWS (LEFT) Urgent/patient waiting 05/29/2025 7:13 PM EST Thumb pain, left documented in this encounter Results * XR HAND 3 OR MORE VIEWS (LEFT) (05/29/2025 7:13 PM EST) Anatomical Region Laterality Modality Hand Left Computed Radiogr aphy 05/29/2025 7:36 PM EST Impressions 05/29/2025 7:43 PM EST No acute fracture or dislocation. Narrative 05/29/2025 7:43 PM EST XR HAND 3 OR MORE VIEWS (LEFT) Referring clinician's provided indication for this examination in Epic: Pain; Pain at base of thumb status post patient questions dislocation that popped back in COMPARISON: None FINDINGS: No acute fracture or malalignment. Possible remote healed fracture of the fifth metacarpal neck. Normal joint spaces. No soft tissue swelling. Procedure Note Prakash Kingsley MD - 05/29/2025 XR HAND 3 OR MORE VIEWS (LEFT) Referring clinician's provided indication for this examination in Epic:Pain; Pain at base of thumb status post patient questions dislocation thatpopped back in COMPARISON: None FINDINGS: No acute fracture or malalignment. Possible remote healed fracture of thefifth metacarpal neck. Normal joint spaces. No soft tissue swelling. IMPRESSION: No acute fracture or dislocation. us [facility] [employer] DEVELOPER IMG XR UPPER EXTREMITY Mya l Result documented in this encounter Visit Diagnoses Not on filedocumented in this encounter Additional Health Concerns Assessment Noted Time PHQ-9 Depression Total Score: 9 06/20/20 17 3:15 PM EST PHQ-2 Depression Total Score: 6 06/20/20 17 3:15 PM EST documented as of this encounter Care Teams Detective Sergeant Relationship Specialty Start Date End Date Pcp, Unknown PCP - General 05/29/25 documented as of this encounter Additional Source Comments The information contained in this document represents components of the legal health record. It is not the complete legal health record.[facility]
--- OUTSIDE RECORDS SUMMARY | 2025-07-02 14:40 | XMS_ITS | Data Portability ---
Author Organization [place] - [facility], Allergy Address [address] [place] [address] Care Team Providers Care Brake Drum Lathe Operator Name Role Phone MILKA JACKSON Primary Care Provider Assessment No assessment recorded. Plan of Treatment Reminders Order Date Submit Date Provider Last Modified By Organization Details Last Modified Time Details Appointments Establish ed 30 2025 08:30A M HECTOR Hernandez MD Not available Not [...] Recorded Time Impacted cerumen of bilateral ears [id number] 38210 Active 2020 Impacted cerumen, bilateral ; Note: Date Diagnosed : 09/09/2020 9:20 AM (H61.23) Not Available [facility] 4 02:27:13 Chronic nonsuppur ative otitis media of bilateral ears 41214055877 65022 Active 2020 Other chronic nonsuppur ative otitis media, bilateral ; Note: Date Diagnosed : 09/09/2020 9:19 AM (H65.493) Not Available [facility] 4 02:27:05 Conductiv e hearing loss, bilateral 919202895 Active 2020 Conductiv e hearing loss, bilateral ; Note: Date Diagnosed : 09/09/2020 9:47 AM (H90.0) Not Available [facility] 4 02:27:01 Postmasto idectomy complicat ion 00565750 Active 2020 Other disorders following mastoidec reynaldo, bilateral ears; Note: Date Diagnosed : 03/16/2021 3:23 PM (H95.193) Not Available [facility] 4 02:26:56 Chronic otitis media of bilateral ears 95658370358 92795 Active 2023 HECTOR CAMPOVERDE MD [address] [facility],[place] [address], [place], [address] , [place] - [facility] 4 09:02:34 Bilateral disorder of Eustachia n tubes 81793140863 Active 2023 HECTOR CAMPOVERDE MD [address] [place] [address],[place] [address], [place], [address] , [place] - [facility] 4 09:03:03 Problem Notes None recorded. Procedures Surgical History Date Name Laterality Status Provider Name and Address Organization Details Recorded Time 5 Debridement of Mastoid Cavity bilat completed HECTOR CAMPOVERDE MD [address] [place] [address],[address], [address], [place] - [facility] 06/27/2025 09:31:49 5 Debridement of Mastoid Cavity bilat completed HECTOR CAMPOVERDE MD [address] [place] [address],[address], [address], [place] - [facility] 03/28/2025 08:33:04 5 Debridement of Mastoid Cavity bilat completed HECTOR CAMPOVERDE MD [address] [place], [place] [address]on [place],[address], [address], [place] - [facility] 12/25/2024 08:59:47 5 Debridement of Mastoid Cavity bilat completed HECTOR CAMPOVERDE MD [address] [place] [address],[address], [address], [place] [facility] 09/27/2024 08:16:09 4 Debridement of Mastoid Cavity bilat completed HECTOR CAMPOVERDE MD [address] [place] [address],[address], [address], [place] [facility] 06/14/2024 08:10:12 4 Debridement of Mastoid Cavity bilat completed HECTOR CAMPOVERDE MD [address] [facility],[place] [address], [place], [address], [facility] 03/15/2024 09:09:46 4 Debridement of Mastoid Cavity bilat completed HECTOR CAMPOVERDE MD [address] [facility], [place], [address], [facility] 12/11/2023 09:02:07 Imaging Results None recorded. Procedure Notes None recorded. Medical Equipment None Reported. Allergies Allergen ID Allergen Name Allergen Category Reaction Reaction Severity Criticality Documentation Date Start Date Code Code System Note Provider Name and Address Organization Details Recorded Time 418733 amphetami ne aspartate / amphetami ne sulfate / dextroamp hetamine saccharat e / dextroamp hetamine sulfate medicatio n other Not available Not available 06/27/20252008 71972 9 RxNorm behav ior Took at [facility]. When withd rawn, there were side effec ts. Not Available zach - External Data Service - prod 5 04:39:00 230038 sulfameth oxazole medicatio n Not available Not available Not available 06/27/20252011 56341 RxNorm unrec ogniz ed react ion (text : Unkno wn, code: 90505 5006) (from exter nal sourc e) Not Available zach - External Data Service - prod 5 04:39:00 774410 trimethop rim medicatio n Not available Not available Not available 06/27/20252011 72151 RxNorm unrec ogniz ed react ion (text : Unkno wn, code: 32899 5006) (from exter nal sourc e) Not Available zach - External Data Service - prod 5 04:39:00 39004 Bactrim medicatio n other Not available Not available 11/21/2023 76696 9 RxNorm React ion: Unkno wn; Not Available [facility] 4 00:57:01 02249 Substance with sulfonami de structure and antibacte rial mechanism of action (substanc e) medicatio n other Not available Not available 11/21/2023 47381 8003 SNOMED React ion: Unkno wn; Not Available [facility] 00:57:02 Medications Name Sig Start Date Stop [...] Updated DateTime 09/27/2024 185.42 cm 29.7 kg/m2 058701.28 g Barby Hewitt [place] - [facility] 09/27/2024 08:01:58 Date Recorded Body height Body mass index (BMI) Body weight Provider Name and Address Organization Details Last Updated DateTime 12/25/2024 185.42 cm 29.7 kg/m2 577021.28 g Barby Hewitt [place] - [facility] 12/25/2024 08:27:10 Date Recorded Body height Body mass index (BMI) Body weight Provider Name and Address Organization Details Last Updated DateTime 03/28/2025 185.42 cm 29.7 kg/m2 950186.28 g Barby Hewitt [place] - [facility] 03/28/2025 08:04:59 Date Recorded Body height Body mass index (BMI) Body weight Provider Name and Address Organization Details Last Updated DateTime 06/14/2024 185.42 cm 29.7 kg/m2 819323.28 g Barby Hewitt [place] - [facility] 06/14/2024 07:59:08 Date Recorded Body height Body mass index (BMI) Body weight Provider Name and Address Organization Details Last Updated DateTime 06/27/2025 185.42 cm 31 kg/m2 092305.21 g Cassidy Ramos [place] - [facility] 06/27/2025 09:08:38 Social History None recorded. Functional Status None recorded. Mental Status None recorded. Family History Nothing Reported. Medical History No medical history recorded. Past Encounters Encounter ID Performer Location Encounter Start Date Encounter Closed Date Diagnosis/Indication Diagnosis SNOMED-CT Code Diagnosis ICD10 Code Diagnosis IMO Codes Diagnosis Note [id number] HECTOR CAMPOVERDE MD [facility] on [address] [place] [address] 12/11/2023 08:33:59 12/11/2023 16:23:24 Chronic otitis media of bilateral ears 9355781170 176312 H66.93 No sign of residual cholesteat cathie. Both ears debrided of squamous debris. Repeat in 3 months. Bilateral disorder of Eustachian tubes 8443737810 089120 H69.93 Recommend observatio n [id number] HECTOR CAMPOVERDE MD [facility] on [address] [place] [address] 03/15/2024 08:43:20 03/15/2024 09:19:21 Chronic otitis media of bilateral ears 7613645584 717731 H66.93 No sign of residual cholesteat cathie. Both ears debrided of squamous debris. Repeat in 3 months. Impacted c erumen of bilateral ears 5453045599 047526 H61[place]23 [place] [id number] HECTOR CAMPOVERDE MD [facility] on [address] [place] [address] 06/14/2024 07:56:17 06/14/2024 08:12:52 Chronic otitis media of bilateral ears 1671619417 211397 H66.93 No sign of residual cholesteat cathie. Both ears debrided of squamous debris. Repeat in 3 months. Bilateral disorder of Eustachian tubes 8701096381 087706 H69.93 Recommend observatio n [id number] HECTOR CAMPOVERDE MD [facility] on [address] [place] [address] 09/27/2024 07:59:37 09/27/2024 08:15:40 Chronic otitis media of bilateral ears 0295811598 849460 H66.93 No sign of residual cholesteat cathie. Both ears debrided of squamous debris. Repeat in 3 months. Bilateral disorder of Eustachian tubes 7959465012 564045 H69.93 [place]atio n [id number] HECTOR CAMPOVERDE MD [facility] on [address] [address], [place] [address] 12/25/2024 08:23:49 12/25/2024 08:48:07 Chronic otitis media of bilateral ears 1374072860 809961 H66.93 No sign of residual cholesteat cathie. Both ears debrided of squamous debris. Repeat in 3 months. Bilateral disorder of Eustachian tubes 8274754658 675618 H69.93 Recommend observatio n [id number] HECTOR CAMPOVERDE MD [facility] on [address] [place] [phone] 03/28/2025 07:54:38 03/28/2025 08:31:33 Chronic otitis media of bilateral ears 7667447992 147377 H66.93 No sign of residual cholesteat cathie. Both ears debrided of squamous debris. Repeat in 3 months. Bilateral disorder of Eustachian tubes 9068245628 778246 H69.93 Recommend observatio n [id number] HECTOR CAMPOVERDE MD [facility] on [address] [place] [phone] 06/27/2025 09:01:31 06/27/2025 09:16:12 Chronic otitis media of bilateral ears 6923494516 862011 H66.93 No sign of residual cholesteat cathie. Both ears debrided of squamous debris. Repeat in 3 months. Bilateral disorder of Eustachian tubes 7791267622 558219 H69.93 Recommend observatio n Health Concerns Section Related Observation LastModified by Organization Detai ls LastModified Time None Recorded Concern Status LastModified by Organization Details LastModified Time None Recorded Advance Directives Directive None Recorded Payers Insurance Date Sequence Insurance Name Policy Number Policy Regalado Covered Member ID Regalado Member ID Guarantor Name 03/28/2025 1 [facility] (MEDICAID HMO) [id number] Juancarlos Alarcon [id number] Juancarlos Alarcon 07/02/2025 1 [facility] (MEDICAID HMO) BOST[place]CO Juancarlos Alarcon [id number] Juancarlos Alarcon Notes Date Note Type Note Provider Name and Address Organization Details Recorded Time 06/14/2024 text/html ROS as noted in the HPI Hx of CWD mastoidectomy AU. Presents for routine debridement. No issues. HECTOR CAMPOVERDE MD [address] [facility],[address], [address], [place] - [facility] 06/14/2024 08:10:56 09/27/2024 text/html ROS as noted in the HPI Hx of CWD mastoidectomy AU. Presents for routine debridement. No issues. HECTOR CAMPOVERDE MD [address] [facility],[address], [address], [place] [facility] 09/27/2024 08:16:52 12/25/2024 text/html ROS as noted in the HPI Hx of CWD mastoidectomy AU. Presents for routine debridement. No issues. HECTOR CAMPOVERDE MD [address] [facility],[address], [address], [place] [facility] 12/25/2024 09:00:18 03/28/2025 text/html ROS as noted in the HPI Hx of CWD mastoidectomy AU. Presents for routine debridement. No issues. HECTOR CAMPOVERDE MD [address] [facility],[address], [address], [place] [facility] 03/28/2025 08:33:32 06/27/2025 text/html ROS as noted in the HPI Hx of CWD mastoidectomy AU. Presents for routine debridement. No issues. HECTOR CAMPOVERDE MD [address] [facility],[address], [address], [place] [facility] 06/27/2025 09:32:11
--- OUTSIDE RECORDS SUMMARY | 2025-07-02 14:40 | XMS_ITS | Clinical Summary ---
Author Organization [facility] Address [address] [place] [address] Phone Care Team Providers Care Applications Scientist Name Role Phone Pcp, Unknown Primary Care Provider Unavailabl e Allergies Active Allergy Reactions Criticality Noted Date Comments Dextroamphetamine-Amphetam ine Other (See Comments) 01/23/2009 behavior Took at [age]. When withdrawn, there were side effects. Sulfa (Sulfonamide Antibiotics) Hives 08/01/2006 Childhood -- 1 yrs old. Sulfamethoxazole Unknown 08/08/2011 Trimethoprim Unknown 08/08/2011 Medications clindamycin (CLEOCIN T) 1 % lotionIndication s:Molluscum contagiosum Apply to legs and buttocks daily. 60 mL 4 Active Additional Information Patient not taking.Reported on 05/29/2025 imiquimod (ALDARA) 5 % creamIndications :Molluscum contagiosum Apply 1 packet topically 3 (three) times a week. Wash hands prior to and following application. 6 packet Active Additional Information Patient not taking.Reported on 05/29/2025 Active Problems Problem Noted Date Diagnosed Date [...] L postauricular region since 06/25. Went to [facility], given abx for ?folliculitis, [...] hyperactivity disorder) 06/30/2017 Overview (06/30/2017): Treated from 4185-9695. Now off medications. Thinks he doesn't need them. OK at work, works for [employer] business, [employer]. Marijuana smoker 06/30/2017 Overview (06/30/2017): Smokes marijuana daily, usually after he gets home from work, then before bed. Helps his sleep. Assessment & Plan (06/30/2017 9:18 AM EST): Reviewed risks of marijuana, including increased risk fatal MVA, also risk of: low sperm count, FL/CVA/afib, lung/head and neck/testicular ca, transient but real [...] to cholesteotoma. Sees Dr. Fabio Gardner at [facility]. Encounters Date Type Department Care Team Description 05/29/2025 7:07 PM EST Hospital Encounter [facility] [address] [place] [id number] [facility] 05/29/2025 6:50 PM EST Office Visit [facility] at [address] [address] [facility] Thumb pain, left (Primary Dx) from Last 3 Months Immunizations Immunization Administration [...] Sign Reading Time Taken Comments Blood Pressure 120/80 05/29/2025 6:58 PM EST Pulse 59 05/29/2025 6:58 PM EST Temperature 36.9 C (98.4 F) 05/29/2025 6:58 PM EST Respiratory Rate 17 05/29/2025 6:58 PM EST Oxygen Saturation 98% 05/29/2025 6:58 PM EST Inhaled Oxygen Concentration - - Weight 96.3 kg (212 lb 4.8 oz) 08/18/2017 8:59 A M EST Height 185 cm (6' 0.84 ) 08/18/2017 8:59 AM EST Body Mass Index 28.14 08/18/2017 8:59 AM EST Plan of Treatment Health Maintenance Due Date Last Done Comments HEPATITIS C SCREENING 2011 Adult Td,Tdap Booster 08/02/2015 08/02/2005 , 02/12/2002, 02/12/2002 DEPRESSION SCREENING 06/20/2018 06/20/2017, 06/20/20 17 COVID-19 VACCINE ( season) 2025 HIB VACCINES Completed 01/25/2001, 01/07, 09/06/1994, Additional history exists HEPATITIS A VACCINES Completed 03/23/2011, 02/13/20 10 MENINGOCOCCAL VACCINES (ACWY) Completed 03/23/2011, 08/02/2005 HIV ONE-TIME SCREENING (18-65 YEARS) Completed 06/20/2017 INFLUENZA VACCINE Completed 05/16/2025, , 06/27/2014, Additional history exists SMOKING STATUS SCREENING (Once After 26 Yrs) Completed 05/29/2025 MENINGOCOCCAL VACCINES (B) Aged Out N o longer eligible based on patient's age to complete this topic PNEUMOCOCCAL VACCINES (0-49 years) Aged Out No longer eligible based on patient's age to complete this topic Medical Devices Not on file Procedures Procedure Name Priority Date/Time Associated Diagnosis Comments XR HAND 3 OR MORE VIEWS (LEFT) Urgent/patient waiting 05/29/2025 7:13 PM EST Thumb pain, left from Last 3 Months Results * XR HAND 3 OR MORE [...] swelling. IMPRESSION: No acute fracture or dislocation. [facility] [employer] OFFSET LITHOGRAPHIC PRESS SETTER IMG XR UPPER EXTREMITY Mya l Result from Last [address] [place] [address] [place] [address] [place] [address] [facility] [facility] ACO [facility]CO [facility] ACO Care Teams Applications Scientist Relationship Specialty Start Date End Date Pcp, Unknown PCP - General 05/29/25 Additional Source Comments The information contained in this document represents components of the legal health record. It is not the complete legal health record.[facility]
--- OUTSIDE RECORDS SUMMARY | 2025-07-02 14:40 | XMS_ITS | Continuity of Care Document ---
Author Organization [place] - [facility], [facility] Address [address] [place] [address] Care Team Providers Care Car Wash Attendant Automatic Name Role Phone MILKA JACKSON Primary Care [...] Recorded Time Impacted cerumen of bilateral ears 14545746260 53813 Active 2020 Impacted cerumen, bilateral ; Note: Date Diagnosed : 09/09/2020 9:20 AM (H61.23) Not Available [facility] 4 02:27:13 Chronic nonsuppur ative otitis media of bilateral ears 92923710086 59707 Active 2020 Other chronic nonsuppur ative otitis media, bilateral ; Note: Date Diagnosed : 09/09/2020 9:19 AM (H65.493) [facility] Available [facility] 4 02:27:05 Conductiv e hearing loss, bilateral 899578749 Active 2020 Conductiv e hearing loss, bilateral ; Note: Date Diagnosed : 09/09/2020 9:47 AM (H90.0) Not Available [facility] 4 02:27:01 Postmasto idectomy complicat ion 05410446 Active 2020 Other disorders following mastoidec reynaldo, bilateral ears; Note: Date Diagnosed : 03/16/2021 3:23 PM (H95.193) Not Available [facility] 4 02:26:56 Chronic otitis media of bilateral ears 71838034858 87343 Active 2023 HECTOR CAMPOVERDE MD [address] [facility],[place] [address], [place], [address] , [place] - [facility] 4 09:02:34 Bilateral disorder of Eustachia n tubes 45567234860 Active 2023 HECTOR CAMPOVERDE MD [address] [facility],[place] [address], [place], [address] , [place] - [facility] 4 09:03:03 Problem Notes None recorded. Procedures Surgical History Date Name Laterality Status Provider Name and Address Organization Details Recorded Time 5 Debridement of Mastoid Cavity bilat completed HECTOR CAMPOVERDE MD [address] [facility],[address], [address], [place] - [facility] 06/27/2025 09:31:49 5 Debridement of Mastoid Cavity bilat completed HECTOR CAMPOVERDE MD [address] [facility],[address], [address], [place] [facility] 03/28/2025 08:33:04 5 Debridement of Mastoid Cavity bilat completed HECTOR CAMPOVERDE MD [address] [facility],[address], [address], [place] [facility] 12/25/2024 08:59:47 5 Debridement of Mastoid Cavity bilat completed HECTOR CAMPOVERDE MD [address] [facility],[address], [address], [place] [facility] 09/27/2024 08:16:09 4 Debridement of Mastoid Cavity bilat completed HECTOR CAMPOVERDE MD [address] [facility],[address], [address], [facility] - [facility] 06/14/2024 08:10:12 4 Debridement of Mastoid Cavity bilat completed HECTOR CAMPOVERDE MD [address] [facility] [address], [place], [address], [facility] - [facility] 03/15/2024 09:09:46 4 Debridement of Mastoid Cavity bilat completed HECTOR CAMPOVERDE MD [address] [facility] [address], [place], [address], [facility] - [facility] 12/11/2023 09:02:07 Imaging Results None recorded. Procedure Notes None recorded. Medical Equipment None Reported. Allergies Allergen ID Allergen Name Allergen Category Reaction Reaction Severity Criticality Documentation Date Start Date Code Code System Note Provider Name and Address Organization Details Recorded Time 288737 amphetami ne aspartate / amphetami ne sulfate / dextroamp hetamine saccharat e / dextroamp hetamine sulfate medicatio n other Not available Not available 06/27/20252008 12435 9 RxNorm behav ior Took at twelv e. When withd rawn, there were side effec ts. Not Available zach - External Data Service - prod 5 04:39:00 289388 sulfameth oxazole medicatio n Not available Not available Not available 06/27/20252011 60692 RxNorm unrec ogniz ed react ion (text : Unkno wn, code: 51086 5006) (from exter nal sourc e) Not Available zach - External Data Service - prod 5 04:39:00 380517 trimethop rim medicatio n Not available Not available Not available 06/27/20252011 10805 RxNorm unrec ogniz ed react ion (text : Unkno wn, code: 64425 5006) (from exter nal sourc e) Not Available zach - External Data Service - prod 5 04:39:00 80898 Bactrim medicatio n other Not available Not available 11/21/2023 40730 9 RxNorm React ion: Unkno wn; Not Available [facility] 4 00:57:01 36527 Substance with sulfonami de structure and antibacte rial mechanism of action (substanc e) medicatio n other Not available Not available 11/21/2023 27555 8003 SNOMED React ion: Unkno wn; Not Available [facility] 4 00:57:02 Medications Name Sig Start Date [...] Updated DateTime 06/27/2025 185.42 cm 31 kg/m2 239729.21 g Cassidy Ramos [place] - [facility] 06/27/2025 09:08:38 Social History None recorded. Functional Status None recorded. Mental Status None recorded. Family History Nothing Reported. Medical History No medical history recorded. Past Encounters Encounter ID Performer Location Encounter Start Date Encounter Closed Date Diagnosis/Indication Diagnosis SNOMED-CT Code Diagnosis ICD10 Code Diagnosis IMO Codes Diagnosis Note [id number] HECTOR CAMPOVERDE MD [facility] on [address] [place] [address] 06/27/2025 09:01:31 06/27/2025 09:16:12 Chronic otitis media of bilateral ears 7651854166 686141 H66.93 No sign of residual cholesteat cathie. Both ears debrided of squamous debris. Repeat in 3 months. Bilateral disorder of Eustachian tubes 3372823494 749502 H69.93 Recommend observatio n Health Concerns Section Related Observation LastModified by Organization Detai ls LastModified Time None Recorded Concern Status LastModified by Organization Details LastModified Time None Recorded Payers Encounter Date Sequence Insurance Name Policy Number Policy Regalado Covered Member ID Regalado Member ID Guarantor Name 06/27/2025 1 [facility] HEALTH NET PLAN (MEDICAID HMO) VALERI Alarcon [id number] Juancarlos Alarcon Notes Date Note Type Note Provider Name and Address Organization Details Recorded Time 06/27/2025 text/html ROS as noted in the HPI Hx of CWD mastoidectomy AU. Presents for routine debridement. No issues. HECTOR CAMPOVERDE MD [address] [place] [address], [place], [address], [facility] - [facility] 06/27/2025 09:32:11
== END 2025-07-02 14:39 | disposition home or self-care (01) ==
LOC: HO.HAP 14:38
PROVIDERS: Visit Provider Family Medicine
DX: Z46.1 Encounter for fitting and adjustment of hearing aid (principal); H90.6 Mixed conductive and sensorineural hearing loss, bilateral
CPT/HCPCS: 92593